=== PATIENT | male | born 1945 | race Caucasian/White ===

== ENCOUNTER 2017-06-28 07:56 | Emergency (ER) | payer MEDICARE, BC ==
[2017-06-28] MEDS ORDERED: Ketorolac 30 MG/ML SDV IVPUSH ONE (08:12)
[2017-06-28] MEDS ORDERED: Sodium Chloride 0.9% 1,000 ML IV ONE (08:13)
[2017-06-28] MEDS ORDERED: Ondansetron 4 MG/2 ML SDV IVPUSH ONE (08:13)
--- NOTE | 2017-06-28 08:14 | EDM.PDOC ---
ED HPI GENERAL MEDICAL PROBLEM - General Chief Complaint: Abdominal Pain Stated Complaint: ABDOMINAL PAIN Time Seen by Provider: 06/28/17 08:14 Source of Information: Reports: Patient - History of Present Illness INITIAL COMMENTS - FREE TEXT/NARRATIVE: HISTORY AND PHYSICAL: History of present illness: [Patient presents with abdominal pain awoke him from sleep at 4:30 AM no nausea vomiting chills sweats rates pain 8 out of 10 right and left lower quadrant, denies chest pain shortness breath headache dizziness or palpitation some loose stools no urine symptoms ] Review of systems: As per history of present illness and below otherwise all systems reviewed and negative. Past medical history: As per history of present illness and as reviewed below otherwise noncontributory. Surgical history: As per history of present illness and as reviewed below otherwise noncontributory. Social history: No reported history of drug or alcohol abuse. Family history: As per history of present illness and as reviewed below otherwise noncontributory. Physical exam: HEENT: Atraumatic, normocephalic, pupils reactive, negative for conjunctival pallor or scleral icterus, mucous membranes moist, throat clear, neck supple, nontender, trachea midline. Lungs: Clear to auscultation, breath sounds equal bilaterally, chest nontender. Heart: S1S2, regular, negative for clicks, rubs, or JVD. Abdomen: Soft, nondistended, nontender in the upper quadrants tenderness in both left and right lower quadrant with superficial palpation mild guarding no rebound. Negative for masses or hepatosplenomegaly. Negative for costovertebral tenderness. Pelvis: Stable nontender. Genitourinary: Deferred. Rectal: Deferred. Extremities: Atraumatic, negative for cords or calf pain. Neurovascular unremarkable. Neuro: Awake, alert, oriented. Cranial nerves II through XII unremarkable. Cerebellum unremarkable. Motor and sensory unremarkable throughout. Exam nonfocal. Diagnostics: []CBC CMP UA troponin amylase lipase CT abdomen pelvis verbal by Dr. Jovi md Therapeutics: []1 L normal saline bolus Zofran 8 mg IV morphine 2 mg IV Patient offered admission he declined/refused Cipro Flagyl Zofran [place] Impression: []Abdominal pain Diverticulitis Definitive disposition and diagnosis as appropriate pending reevaluation and review of above. - Related Data Allergies Allergy/AdvReac Type Severity Reaction Status Date / Time azithromycin [From Zithromax] Allergy Other Verified 06/28/17 08:16 Home Meds: Home Meds Allopurinol [Zyloprim] 300 mg PO DAILY 06/28/17 [History] Fluticasone Propionate [Flovent Diskus] 50 mcg IH ASDIRECTED PRN 06/28/17 [ History] Lisinopril 5 mg PO DAILY 06/28/17 [History] Metoprolol Tartrate 25 mg PO DAILY 06/28/17 [History] Nitroglycerin [Nitrostat] 0.4 mg SL Q5M PRN 06/28/17 [History] Omeprazole 20 mg PO DAILY 06/28/17 [History] Sucralfate [Carafate] 1 gm PO ASDIRECTED PRN 06/28/17 [History] Vardenafil HCl [Levitra] 10 mg PO ASDIRECTED PRN 06/28/17 [History] atorvaSTATin [Lipitor] 20 mg PO BEDTIME 06/28/17 [History] Past Medical History Cardiovascular History: Reports: Afib, High Cholesterol, Hypertension ED ROS GENERAL - Review of Systems Review Of Systems: ROS reveals no pertinent complaints other than HPI. ED EXAM, GENERAL - Physical Exam Exam: See Below Course - Vital Signs Last Recorded V/S: Last Vital Signs Temp 36.5 C 06/28/17 10:24 Pulse 69 06/28/17 10:24 Resp 12 06/28/17 10:24 BP 136/71 06/28/17 10:24 Pulse Ox 96 06/28/17 10:24 - Orders/Labs/Meds Orders: Active Orders 24 hr Category Date Time Status Abdomen Pelvis w wo Cont [CT] Stat Exams 06/28/17 08:17 Ordered Labs: Laboratory Tests 06/28/17 06/28/17 06/28/17 Range/Units 08:26 08:26 09:52 WBC 12.47 H (4.0-11.0) K/uL RBC 3.83 L (4.50-5.90) M/uL Hgb 12.4 L (13.0-17.0) g/dL Hct 37.4 L (38.0-50.0) % MCV 97.7 (80.0-98.0) fL MCH 32.4 H (27.0-32.0) pg MCHC 33.2 (31.0-37.0) g/dL RDW Std Deviation 51.5 (28.0-62.0) fl RDW Coeff of [place] 14 (11.0-15.0) % Plt Count 210 (150-400) K/uL MPV 10.20 (7.40-12.00) fL Add Manual Diff YES Neutrophils % (Manual) 67 (48.0-80.0) % Lymphocytes % (Manual) 23 (16.0-40.0) % Monocytes % (Manual) 10 (0.0-15.0) % Nucleated RBC % 0.0 /100WBC Absolute Seg Neuts 8.4 H (1.4-5.7) Lymphocytes # (Manual) 2.9 H (0.6-2.4) Monocytes # (Manual) 1.2 H (0.0-0.8) Nucleated RBCs # 0 K/uL Sodium 139 (136-146) mmol/L Potassium 4.1 (3.5-5.1) mmol/L Chloride 105 (98-110) mmol/L Carbon Dioxide 24 (21-31) mmol/L BUN 14 (6.0-23.0) mg/dL Creatinine 0.9 (0.6-1.5) mg/dL Est Cr Clr Drug Dosing 65.97 mL/min Estimated GFR (MDRD) > 60.0 ml/min Glucose 110 (60-110) mg/dL Calcium 9.1 (8.8-10.8) mg/dL Total Bilirubin 1.0 (0.1-1.5) mg/dL AST 16 (5-40) IU/L ALT 14 (8-54) IU/L Alkaline Phosphatase 46 (40-150) Troponin I < 0.10 (0.0-0.29) NG/ML Total Protein 7.4 (6.0-8.0) g/dL Albumin 3.8 (3.4-4.8) g/dL Globulin 3.6 H (2.0-3.5) g/dL Albumin/Globulin Ratio 1.1 L (1.3-2.8) Amylase 38 (10-90) U/L Lipase 19 (7-80) U/L Urine Color YELLOW Urine Appearance CLEAR Urine pH 6.0 (5.0-8.0) Ur Specific [place] 1.010 (1.001-1.035) Urine Protein NEGATIVE (NEGATIVE) mg/dL Urine Glucose (UA) NEGATIVE (NEGATIVE) mg/dL Urine Ketones NEGATIVE (NEGATIVE) mg/dL Urine Occult Blood TRACE-INTACT (NEGATIVE) Urine Nitrite NEGATIVE (NEGATIVE) Urine Bilirubin NEGATIVE (NEGATIVE) Urine Urobilinogen 0.2 (<2.0) EU/dL Ur Leukocyte Esterase NEGATIVE (NEGATIVE) Urine RBC 0-1 (0-2/HPF) Urine WBC 0-1 (0-5/HPF) Ur Epithelial Cells RARE (NONE-FEW) Urine Bacteria RARE (NEGATIVE) Meds: Medications Discontinued Medications Generic Name Dose Route Start Last Admin Trade Name Freq PRN Reason Stop Dose Admin Sodium Chloride 1,000 mls @ 999 mls/hr 06/28/17 08:13 06/28/17 08:42 Normal Saline IV 06/28/17 09:13 999 mls/hr STAT ONE Administration Iopamidol 100 ml 06/28/17 09:22 06/28/17 09:22 Isovue Multipack-370 (76%) IVPUSH 06/28/17 09:23 100 ml ONETIME STA Administration Ketorolac Tromethamine 30 mg 06/28/17 08:12 06/28/17 08:58 Toradol IVPUSH 06/28/17 08:13 Not Given ONETIME ONE Morphine Sulfate 2 mg 06/28/17 08:33 06/28/17 08:42 Morphine IV 06/28/17 08:34 2 mg ONETIME ONE Administration Ondansetron HCl 8 mg 06/28/17 08:13 06/28/17 08:42 Zofran IVPUSH 06/28/17 08:14 8 mg ONETIME ONE Administration Departure - Departure Time of Disposition: 11:17 Disposition: Home, Self-Care 01 Condition: Good Clinical Impression: Diverticulitis - Discharge Information Referrals: PCP,None [Primary Care Provider] - Forms: ED Department Discharge Additional Instructions: Medication as prescribed Return if symptoms persist or worsen or fever nausea vomiting chills sweats despite antibiotics or intractable pain should develop Follow-up with primary care in 2 weeks sooner as needed The following information is given to patients seen in the emergency department who are being discharged to home. This information is to outline your options for follow-up care. We provide all patients seen in our emergency department with a follow-up referral. The need for follow-up, as well as the timing and circumstances, are variable depending upon the specifics of your emergency department visit. If you don't have a primary care physician on staff, we will provide you with a referral. We always advise you to contact your personal physician following an emergency department visit to inform them of the circumstance of the visit and for follow-up with them and/or the need for any referrals to a consulting specialist. The emergency department will also refer you to a specialist when appropriate. This referral assures that you have the opportunity for follow-up care with a specialist. All of these measure are taken in an effort to provide you with optimal care, which includes your follow-up. Under all circumstances we always encourage you to contact your private physician who remains a resource for coordinating your care. When calling for follow-up care, please make the office aware that this follow-up is from your recent emergency room visit. If for any reason you are refused follow-up, please contact the [facility] emergency department at and asked to speak to the emergency department charge nurse. - My Orders Last 24 Hours: My Active Orders 06/28/17 08:17 Abdomen Pelvis w wo Cont [CT] Stat - Assessment/Plan Last 24 Hours: My Active Orders 06/28/17 08:17 Abdomen Pelvis w wo Cont [CT] Stat
[2017-06-28] MEDS ORDERED: Morphine 10 MG/ML Syringe IV ONE (08:33)
[2017-06-28 09:10] LABS: CHLORIDE,CL 105 mmol/L (98-110); SODIUM,NA 139 mmol/L (136-146)
[2017-06-28] MEDS ORDERED: Iopamidol 755 MG/ML 500 ML Multipack Bottle IVPUSH STA (09:22)
--- NOTE | 2017-06-28 15:04 | CT ---
CT of the abdomen and pelvis with and without contrast. HISTORY: Pain TECHNIQUE: Axial CT images were obtained of the abdomen and pelvis without and following the administ ration of Isovue 370. Coronal and sagittal reconstructions obtained. FINDINGS: The lung bases are clear, no pleural effusion. The liver, spleen, adrenal glands, and pancreas appear unremarkable. The gallbladder appears normal. There is no bulky retroperitoneal lymphadenopathy. No abdominal ascites. There are no calcifications noted within the kidneys or along the courses of the ureters bilaterally. Small right renal cortical cyst. The large and small bowel are normal in caliber without evidence of obstruction. The appendix appears normal. There is diverticulosis with mild stranding within the sigmoid region. There is no bulky pel herminio lymphadenopathy. No free fluid. No free air. The urinary bladder appears normal. The visualized osseous structures appear normal. IMPRESSION: 1. Sigmoid diverticulitis without evidence of perforation.
== END 2017-06-28 11:30 | disposition home or self-care (01) ==
LOC: MW.ED 07:56
DX: K57.32 Diverticulitis of large intestine without perforation or abscess without bleeding (principal); I10 Essential (primary) hypertension; Z88.1 Allergy status to other antibiotic agents; Z79.899 Other long term (current) drug therapy
CPT/HCPCS: 36415; 74178; 80053; 81001; 82150; 83690; 84484; 85025; 96361; 96374; 96375; 99284; J2270; J2405; J7040; Q9967; 99283